=== PATIENT | female | born 1965 | race Hispanic/Latino ===

== ENCOUNTER 2017-10-05 08:18 | Day surgery (SDC) | payer MEDICAID ==
[2017-10-05] MEDS ORDERED: ASPIRIN 325 MG TABLET ONE (10:05)
[2017-10-05 10:39] LABS: CREATINE KINASE MB < 0.5 ng/mL (0.5-3.6); CREATINE KINASE, TOTAL 53 U/L (21-232); MYOGLOBIN 18 ng/mL (10-92); TROPONIN I < 0.04 ng/mL (0.00-0.06)
== END 2017-10-05 10:25 | disposition still patient (30) ==
LOC: ENDO 08:18 → DAH 08:18 → ENDO 10:25
PROVIDERS: ATTEND Internal Medicine
DX: K80.50 Calculus of bile duct without cholangitis or cholecystitis without obstruction (principal); Z53.9 Procedure and treatment not carried out, unspecified reason; R07.2 Precordial pain; Z98.890 Other specified postprocedural states; Z90.49 Acquired absence of other specified parts of digestive tract; Z53.8 Procedure and treatment not carried out for other reasons
CPT/HCPCS: 36415; 82550; 82553; 83874; 84484; 93005

== ENCOUNTER 2017-10-05 10:32 | Emergency (ER) | payer MEDICAID ==
[2017-10-05] MEDS ORDERED: ONDANSETRON HCL 4 MG/2 ML VIAL ONE (11:04)
[2017-10-05] MEDS ORDERED: MORPHINE SULFATE 8 MG/ML VIAL ONE (11:05)
[2017-10-05 11:06] LABS: BASOPHILS % (AUTO) 0.6 % (0.0-5.0); EOSINOPHILS % (AUTO) 1.7 % (0.0-8.0); LYMPHOCYTES % (AUTO) 19.8 % (21.0-51.0); MEAN CORPUSCULAR HEMOGLOBIN 31.4 pg (27.0-33.0); MEAN CORPUSCULAR HGB CONC 36.2 g/dL (32.0-36.0); MEAN CORPUSCULAR VOLUME 86.7 fL (79-99); MONOCYTES % (AUTO) 8.4 % (3.0-13.0); NEUTROPHILS % (AUTO) 69.5 % (40.0-77.0); NUCLEATED RED BLOOD CELLS 0.1 % (0.0-0.19); PLATELET COUNT (AUTO) 277 K/uL (130-400); RED BLOOD CELL COUNT(AUTO) 4.15 MIL/uL (4.00-5.50); RED CELL DISTRIBUTION WIDTH 12.9 % (11.0-15.5); WHITE BLOOD COUNT (AUTO) 9.7 K/uL (4.8-10.8)
[2017-10-05 11:19] LABS: CREATININE 0.9 mg/dL (0.5-1.5); POTASSIUM 3.5 mmol/L (3.5-5.1)
[2017-10-05 11:25] LABS: ALBUMIN 3.5 g/dL (3.5-5.0); BILIRUBIN,TOTAL 0.3 mg/dL (0.2-1.0); TOTAL PROTEIN, SERUM 8.3 g/dL (6.0-8.3)
[2017-10-05 11:34] LABS: INR 0.93 (0.85-1.15); PARTIAL THROMBOPLASTIN TIME 26.4 SEC (26.3-35.5); PROTHROMBIN TIME 9.8 SEC (9.6-11.6)
== END 2017-10-05 14:59 | disposition home or self-care (01) ==
LOC: EDH 10:32
DX: R07.89 Other chest pain (principal); Z98.890 Other specified postprocedural states
CPT/HCPCS: 36415 ×2; 71045; 80053; 82550 ×2; 82553; 83874; 84484 ×3; 85025; 85378; 85610; 85730; 93005 ×3; 96374; 96375; 99285; J2270; J2405

== ENCOUNTER 2017-10-07 07:45 | Day surgery (SDC) | payer MEDICAID ==
[~2017-10-07] VITALS: Ht 154.9 cm; Wt 71.2 kg
[~2017-10-07 07:45] MED LIST: SODIUM CHLORIDE 0.9% 1000ML 1,000 ML IV ONE
[2017-10-07 09:44] VITALS: BP 125/71
[2017-10-07] MEDS ORDERED: SERT100T12 PO (10:11)
[2017-10-07] MEDS ORDERED: CALC-1198 PO (10:11)
[2017-10-07] MEDS ORDERED: URSO300C4 PO (10:11)
[2017-10-07] MEDS ORDERED: MELA5CAP PO (10:11)
[2017-10-07] MEDS ORDERED: ISOVUE-370 50ML VIAL IV ONE (11:26)
[2017-10-07] MEDS ORDERED: FENTANYL CITRATE PF 50 MCG/1 ML 2ML VIAL ONE (11:42)
[2017-10-07] MEDS ORDERED: MIDAZOLAM HCL 1 MG/ML 2ML VIAL ONE (11:42)
[2017-10-07] MEDS ORDERED: PROPOFOL 1000 MG/100 ML 100 ML IV ONE (11:42)
[2017-10-07 12:27] VITALS: BP 123/82
[2017-10-07] MEDS ORDERED: INDOMETHACIN 50 MG SUPP.RECT RC SCH (12:30)
== END 2017-10-07 13:45 | disposition home or self-care (01) ==
LOC: DAH 07:45 → ENDO 07:45
PROVIDERS: ATTEND Internal Medicine
DX: K80.50 Calculus of bile duct without cholangitis or cholecystitis without obstruction (principal); E66.9 Obesity, unspecified; Z90.49 Acquired absence of other specified parts of digestive tract; Z79.899 Other long term (current) drug therapy; Z98.890 Other specified postprocedural states
CPT/HCPCS: 43264; 43275; 74330; 93005; A4606; C1769; J2250; J2704; J3010; J7030 ×2; Q9967

== ENCOUNTER → 2018-02-10 | Outpatient (CLI) | payer MEDICAID ==
[~2018-02-10] MED LIST changes: +CALC-1198 PO; +MELA5CAP PO; +SERT100T12 PO; -SODIUM CHLORIDE 0.9% 1000ML 1,000 ML IV ONE
== END | disposition home or self-care (01) ==
LOC: RAH 08:41
PROVIDERS: ATTEND Internal Medicine
DX: N28.1 Cyst of kidney, acquired (principal); K80.50 Calculus of bile duct without cholangitis or cholecystitis without obstruction; Z90.49 Acquired absence of other specified parts of digestive tract
CPT/HCPCS: 76700